=== PATIENT | male | born 1945 | race Caucasian/White ===

== ENCOUNTER → 2024-06-24 15:19 | Outpatient (REF) | payer OTHER, SELFPAY | LOC: RAD 15:19 | PROVIDERS: ATTENDING PHYSICIAN Otolaryngology | DX: J33.0 Polyp of nasal cavity (principal); J34.2 Deviated nasal septum; J30.1 Allergic rhinitis due to pollen | CPT/HCPCS: 70486 ==

== ENCOUNTER 2025-03-24 06:12 | Day surgery (SDC) | payer OTHER, SELFPAY ==
[2025-03-19 15:35] LABS: Hematocrit 40.6 % (39.0-52.0); Hemoglobin 14.1 g/dL (13.0-18.0); Mean Corp Hgb Conc. 34.7 g/dL (33.0-37.0); Mean Corpuscular Volume 96.0 fL (80.0-94.0); Platelet Count 280 10^3/uL (130-400); Red Cell Dist. Width 12.0 % (11.5-14.5)
[2025-03-19 15:51] LABS: Blood Urea Nitrogen 22 mg/dl (9-20); Calcium 10.4 mg/dl (8.4-10.2); Carbon Dioxide 26 mmol/L (22-30); Chloride 109 mmol/L (98-107); Glucose 99 mg/dl (70-99); Potassium 4.5 mmol/L (3.5-5.1); Sodium 139 mmol/L (135-145); eGFR > 60.00
[2025-03-24 06:48] VITALS: BMI 26.2
[2025-03-24 06:49] VITALS: BP 161/77
[2025-03-24] MEDS: NORMOSOL-R/PLASMALYTE-A 1000 IV (07:00)
[2025-03-24 07:51] VITALS: BP 115/69; BP 161/77
[2025-03-24 08:00] VITALS: BP 109/61
[2025-03-24 08:15] VITALS: BP 123/65
[2025-03-24 08:21] VITALS: BP 117/66
[2025-03-24] MEDS: DETROL LA 2 MG PO (08:32)
[2025-03-24 08:45] VITALS: BP 128/68
== END 2025-03-24 09:10 | disposition home or self-care (01) ==
LOC: SDS 06:12
PROVIDERS: ATTENDING PHYSICIAN Surgery; FAMILY PHYSICIAN Family Medicine
DX: R35.0 Frequency of micturition (principal); R32 Unspecified urinary incontinence; Z85.46 Personal history of malignant neoplasm of prostate; N32.89 Other specified disorders of bladder; N36.8 Other specified disorders of urethra; Z92.3 Personal history of irradiation
CPT/HCPCS: 52005; 36415; 74420; 76000; 80048; 85027; 93005; A4300